=== PATIENT | male | born 1950 | race Caucasian/White ===

== ENCOUNTER 2017-08-16 07:58 | Emergency (ER) | payer OTHER, MEDICARE ==
--- NOTE | 2017-08-16 09:20 | EDPHY ---
H & P Time Seen by Provider: 08/16/17 09:01 HPI/ROS: CHIEF COMPLAINT: Skin tear right lower leg HISTORY OF PRESENT ILLNESS: 66-year-old male presents to the emergency department by private vehicle with concerns about a skin tear to his right lower leg. The patient was hiking last night around 7:00 p.m. And a branch from a stump of a tree tore his right lower leg. He was able to hike out and wrapped his leg with an Jose D bandage. He has had multiple skin tears including in 2016 had a skin tear that became infected and required surgical debridement by Dr. Alicia Howard. No treatment at home. Tetanus shot is current. ROS: Denies numbness or tingling in his toes, retained foreign body, fevers or chills. Past Medical/Surgical History: Chronic severe rheumatoid arthritis on immunosuppressive therapy- prednisone 5 mg daily, cervical fusion, orthopedic surgery, cellulitis left lower extremity requiring surgical debridement 2015. Social History: Single and lives in [place] Smoking Status: Former smoker Physical Exam: On examination the patient has a large 8 cm gaping skin tear to the anterior aspect of the right lower leg with slow active bleeding noted. No palpable bony tenderness. No evidence of retained foreign body. He has normal sensation to light touch with normal 2 point discrimination. Strong dorsalis pedis pulse on the dorsal aspect of his right foot. Full range of motion of the right ankle and knee. Constitutional: Initial Vital Signs Temperature (C) 37.0 C 08/16/17 08:04 Heart Rate 85 08/16/17 08:04 Respiratory Rate 16 08/16/17 08:04 Blood Pressure 133/91 H 08/16/17 08:04 O2 Sat (%) 97 08/16/17 08:04 O2 Delivery Mode Room Air Allergies/Adverse Reactions: No Known Allergies Allergy (Unverified 11/19/12 11:16) Home Medications: Medication Instructions Recorded Lisinopril 08/16/17 Methotrexate 08/16/17 Naproxen 08/16/17 Oxycodone HCl 08/16/17 predniSONE 08/16/17 MDM/Departure - MDM Procedures: Verbal consent was obtained from the patient. The 8 cm skin tear on the anterior aspect right lower leg was anesthetized using 1% lidocaine with epinephrine. The wound was irrigated with saline, draped and explored to its base with a gloved finger. There were no deep structures involved. No tendon injury was identified. No sutures placed. The procedure was performed by myself. ED Course/Re-evaluation: 66-year-old male presents to the emergency department with a skin tear to his right lower extremity that is now over 14 hr old. The patient tells me that he is a patient of Dr. Alicia Howard and he was told that the next time he has a skin tear that she is to be contacted. This is due to a skin tear that he injured 2 years ago that became infected and required surgical debridement. I spoke with Dr. Alicia Howard at 9:15 a.m., and she is coming to evaluate the patient. Dr. Alicia Howard has placed a wound VAC on the patient's wound given his past history of cellulitis and complications with infection given his immunocompromised state. He has a scheduled appointment at the wound healing center next 08/23/2017 at 1:00 p.m.. Home health has also been arranged. Patient is comfortable with this plan and will be discharged. - Depart Disposition: Home, Routine, Self-Care Clinical Impression: Skin tear of right lower leg without complication Qualifiers: Encounter type: initial encounter Qualified Code(s): S81.811A - Laceration without foreign body, right lower leg, initial encounter Condition: Good Instructions: Skin Tear (ED) Additional Instructions: [facility] will be following you at home with your wound care /wound vac. They will contact you and arrange your first visit this evening. You may contact them with any questions at Referrals: [facility] [Clinic] - 08/23/17 1:00 pm (You have a scheduled appointment on 08/23/2017 at 1:00 p.m..)
--- NOTE | 2017-08-16 10:12 | GCON ---
[f rep st] CONSULTATION DATE OF CONSULTATION: 08/16/2017 CHIEF COMPLAINT: Traumatic wound, right lower extremity. HISTORY OF PRESENT ILLNESS: The patient is a 66-year-old man with rheumatoid arthritis who fell hiki ng last night. He had a full-thickness laceration. He elected not to present last night because he did not think that the wound would be able to be repaired. He came in this morning. He has a histor y of chronic wounds and I have treated him in the past where he has needed IV antibiotics and surgica l intervention. PAST MEDICAL HISTORY: Rheumatoid arthritis, severe, on immunosuppression requiring 5 arthroplasties, including both hips, both knees and left shoulder; BPH. SOCIAL HISTORY: Lives independent with a roommate. He does not smoke or drink alcohol. He does use marijuana. FAMILY HISTORY: Rheumatoid arthritis in his sister. ALLERGIES: No known drug allergies. REVIEW OF SYSTEMS: 10-point review of systems otherwise negative. PHYSICAL EXAMINATION: VITAL SIGNS: Reviewed. GENERAL: Pleasant, well-nourished man sitting up in bed. Musculoskeletal changes consistent with severe rheumatoid arthritis. HEENT: Normocephalic. N o gross hearing deficits. Mucous membranes moist. Pupils equal and round. No scleral icterus. JOSE DANIEL GS: No increased work of breathing. SKIN: On the right lower extremity, he has a full-thickness te ar with devitalized skin. I trimmed away the devitalized skin. The wound measures 7 x 3 x 0.4 cm. There is undermining from the 9 o'clock to 12 o'clock position on the lateral edge. The base is mauri n. NEURO: Grossly intact. PSYCH: Mood and affect normal. IMPRESSION AND PLAN: 66-year-old man with severe rheumatoid arthritis on chronic immunosuppression, who developed a full-thickness laceration to his right lower extremity. He would benefit greatly fro m negative pressure therapy to assist with granulation tissue formation. I have also recommended orly t he be placed on doxycycline 100 mg p.o. twice daily for 5 days. He will follow up in the [facility]. We will arrange home care form to assist with his VAC. I anticipate he will need the w ound VAC for about 1 month. /[id number]/MODL
[2017-08-16 13:03] VITALS: BP 125/82
--- NOTE | 2017-08-16 13:22 | ASMTCMCOM ---
CM Note CM Note Notes: Wound vac placed on patient in the ER with plan for HH to follow with care. Patient has had HH services in the past and requests [facility] (Morenita THURMAN) to be consulted. Wilmer at [facility] contacted per Dr. Howard and coordination and authorization arranged with Nikkie at [facility] Wound Vac serial number # [id number]. HH orders received and confirmed with Marixa at [facility] #[id number]. Services will begin with RN visit this evening and Morenita THURMAN will be available as of tomorrow to follow patient as requested. I have discussed plans with patient and answered any questions regarding his follow up. He has a friend/family available to take him home. Date Signed: 08/16/2017 01:21 PM Electronically Signed By:Desirae Magana RN
== END 2017-08-16 13:36 | disposition home or self-care (01) ==
DX: S81.811A Laceration without foreign body, right lower leg, initial encounter (principal); Z87.891 Personal history of nicotine dependence; W22.8XXA Striking against or struck by other objects, initial encounter; Y99.8 Other external cause status

== ENCOUNTER → 2018-08-01 | Outpatient (CLI) | payer OTHER, MEDICARE | LOC: FIMAGING 10:09 ==